=== PATIENT | female | born 1970 | race Caucasian/White ===

== ENCOUNTER 2023-07-31 16:01 | Emergency (ER) | payer OTHER, SELFPAY ==
[2023-07-31 16:17] VITALS: BP 117/80; PULSE 93; RESP 18; TEMP 37.2; O2SAT 97
--- NOTE | 2023-07-31 17:21 | ED.URI ---
HPI - URI/Sore Throat General Chief Complaint: Upper Respiratory Infection Stated Complaint: Cough/Body Ache Time Seen by Provider: 07/31/23 17:18 Source: patient, RN notes reviewed and old records reviewed Mode of arrival: ambulatory Limitations: no limitations History of Present Illness HPI Narrative: 53 year old female who resents to express care with complaints of cough, body aches, green slimy looking stuff expectorated which started yesterday.. Patient voices concern due to past history of pneumonia. Patient also has history of tobacco abuse. Patien denies any known fevers chills or sweats, admits to generalized body aches. Patient has taken OTC medications and Ibuprofen for her symptoms. MD elicited complaint: cough Pertinent past history: pneumonia and other (tobacco abuse) Onset (ago): day(s) (day 2 of symptoms) Pain scale (0-10): 5 Treatments prior to arrival: ibuprofen and cold medicine Related Data Home Medications Medication Instructions Recorded Confirmed baclofen 10 mg tablet mg 07/31/23 bupropion HCl 300 mg 24 hr tablet, mg PO 07/31/23 extended release diazepam 5 mg tablet mg 07/31/23 gabapentin 300 mg capsule mg 07/31/23 lamotrigine 200 mg tablet mg 07/31/23 meloxicam 15 mg tablet mg 07/31/23 omeprazole 40 mg capsule,delayed mg 07/31/23 release tizanidine 4 mg tablet mg 07/31/23 ziprasidone HCl 80 mg capsule mg PO 07/31/23 Allergies Allergy/AdvReac Type Severity Reaction Status Date / Time codeine AdvReac Intermediate hives Verified 03/25/17 16:00 steroids AdvReac Unknown Unknown Uncoded 07/31/23 16:29 Review of Systems Review of Systems: CONSTITUTIONAL: Reports malaise, chills, sweats, or fever. EYES: Denies visual changes, redness, or discharge. ENT: Reports rhinorrhea, congestion, sinus pain, no otalgia and no sore throat. CARDIOVASCULAR: Denies chest pain, palpitations, or edema. RESPIRATORY: Reports cough.? Denies dyspnea.states productive cough GASTROINTESTINAL: Denies abdominal pain, nausea, vomiting, diarrhea SKIN: Denies rash or itching. MUSCULOSKELETAL: Denies myalgia. NEUROLOGIC: Denies headache. All systems reviewed & are unremarkable except as noted in HPI and below PMFSH Past Medical History Medical History (Updated 08/03/23 @ 14:35 by Clarisa Hernandez NP) Anxiety and depression Pneumonia PTSD (post-traumatic stress disorder) Schizoaffective disorder Surgical History Surgical History (Updated 08/03/23 @ 14:31 by Clarisa Hernandez NP) H/O: hysterectomy History of arthroscopy of right shoulder Social History Social History (Updated 08/03/23 @ 14:28 by Clarisa Hernandez NP) Smoking status: Current every day smoker Substance use type: does not use Living arrangements: with family Gender identity (if verbalized by the patient): Female Comments At time of signature, agree with nursing past medical, surgical, social and family history. There is no relevant family history pertinent to the presenting complaint Exam Narrative: GENERAL: Well-appearing, well-nourished, and in no acute distress. HEAD: Normocephalic EYES: PERRLA, conjunctivae clear ENT: Nares clear, turbinates edematous and erythematous, clear discharge. Mucous membranes moist. TM pearly le with dull light reflex bilaterally; no tragal tenderness. Oropharynx erythematous without lesions. Tonsils not enlarged and without exudate, no drooling, no hoarseness, no trismus, uvula midline. NECK: Supple. No lymphadenopathy CHEST: Clear to auscultation, breath sounds equal. No wheezing, rhonchi, rales, or stridor. No respiratory distress, speaks in full sentences.productive cough SAO2 97% on room air HEART: Regular rate and rhythm. No murmur heard. SKIN: Warm, dry, no rash NEURO: Alert and oriented x3. PSYCH: Normal mood and affect Course Course Emergency Course: Patient is aware of diagnosis, understands and agrees to treatment plan.? Anticipa
== END 2023-07-31 17:28 | disposition home or self-care (01) ==
PROVIDERS: Emergency Provider Registered Nurse; PCP Internal Medicine
DX: J06.9 Acute upper respiratory infection, unspecified (principal); Z20.822 Contact with and (suspected) exposure to COVID-19; F17.200 Nicotine dependence, unspecified, uncomplicated
CPT/HCPCS: 87426; 87804; 99203; C9803; G0463

== ENCOUNTER 2024-02-25 12:48 | Emergency (ER) | payer OTHER, SELFPAY ==
[2024-02-25 12:49] VITALS: BP 141/72; PULSE 74; RESP 16; TEMP 36.6; O2SAT 100
--- NOTE | 2024-02-25 13:33 | ED.DENTAL ---
HPI - Dental/Oral General Chief complaint: Dental/Oral Stated complaint: L bottom molar abscess Time Seen by Provider: 02/25/24 13:17 Source: patient Mode of arrival: ambulatory Limitations: no limitations History of Present Illness HPI Narrative: patient is a 54-year-old female with significant past medical history presents today with dental pain. Patient has a wisdom tooth is painful on the bottom left side. She states she has had most of her teeth removed on the bottom except for her throat was no teeth and this 1 is however some weight and very painful. His her stenosis pain and this is that was sutured MD Complaint: tooth pain Teeth map: 1. Abscess Onset (ago): day(s) Duration: constant Severity: moderate Severity scale (1-10): 5 Relieving factors: NSAIDs Exacerbating factors: chewing Context: history of dental caries Associated symptoms: gum swelling Related Data Home Medications Medication Instructions Recorded Confirmed diazepam 5 mg tablet 5 mg TID 07/31/23 02/25/24 Allergies Allergy/AdvReac Type Severity Reaction Status Date / Time Penicillins Allergy Rash Verified 02/25/24 12:55 codeine AdvReac Intermediate hives Verified 02/25/24 12:55 steroids AdvReac Unknown Unknown Uncoded 02/25/24 12:55 Review of Systems Review of Systems: All systems reviewed & are unremarkable except as noted in HPI and below Constitutional: Constitutional: Reports as per HPI Eyes: Eyes: Reports no additional eye complaints ENT: Reports as per HPI Cardiovascular: Cardiovascular: Reports no additional cardiovascular complaints Respiratory: Respiratory: Reports no additional respiratory complaints Gastrointestinal: Gastrointestinal: Reports no additional gastrointestinal complaints Genitourinary: Genitourinary: Reports no additional female genitourinary complaints Musculoskeletal: Musculoskeletal: Reports as per HPI Integumentary/Breasts: Skin/Breast: Reports system reviewed and no additional complaints, except as docu Neurologic: Reports system reviewed and no additional complaints, except as documented Psychiatric: Psychiatric: Reports no additional psychiatric complaints Endocrine: Endocrine: Reports no additional endocrine complaints Hematologic/Lymphatic: Hematologic/Lymphatic: Reports no additional hematologic/lymphatic complaints Allergic/Immunologic: Allergic/Immunologic: Reports no additional allergic/immunologic complaints PMFSH Past Medical History Medical History Anxiety and depression Pneumonia PTSD (post-traumatic stress disorder) Schizoaffective disorder Surgical History Surgical History H/O: hysterectomy History of arthroscopy of right shoulder Social History Social History Smoking status: Current every day smoker Substance use type: does not use Living arrangements: with family Gender identity (if verbalized by the patient): Female Exam Const: General: healthy appearing Nutritional Appearance: well nourished Orientation/consciousness: patient oriented x3 HENMT: Head: normal to inspection Ears: external ears normal Face/Nose/Sinus: Normal external nose present Face and sinus: normal facial exam Mouth: Yes Normal oral and palatal mucosa present Teeth and gingiva: abnormal tooth and associated gingiva Throat: posterior oropharynx normal Eyes: Conjunctivae: conjunctivae normal Pupils: Equal, round and reactive pupils present EOM: EOMs intact bilaterally Neck: Neck: normal visual inspection Chest: Chest palpation & inspection: normal inspection of the chest Resp: Effort & Inspection: normal respiratory effort Auscultation: clear to auscultation bilaterally Cardio: Rate: regular rate Rhythm: regular rhythm GI: GI Palp: Yes Soft to palpation : General: Yes bladder normal to palpation Back/
== END 2024-02-25 13:59 | disposition home or self-care (01) ==
PROVIDERS: Emergency Provider Family Medicine; PCP Internal Medicine
DX: K04.7 Periapical abscess without sinus (principal); K02.9 Dental caries, unspecified; F17.200 Nicotine dependence, unspecified, uncomplicated
CPT/HCPCS: 99283